=== PATIENT | female | born 1940 | race Caucasian/White ===

== ENCOUNTER 2023-11-28 07:42 | Inpatient (IN) | payer MEDICARE ==
[2023-11-28] VITALS (8 sets, daily range): BP systolic 110–148; BP diastolic 53–72; PULSE 86–100; RESP 18–20; TEMP 97.2–99.1; O2SAT 96–100
[~2023-11-28] VITALS: Ht 154.9 cm; Wt 63.5 kg
[2023-11-28 08:21] LABS: BASOPHILS % (AUTO) 0.2 % (0.0-2.0)
[2023-11-28] MEDS: PANTOPRAZOLE 40 MG INJ VIAL IVP ONE (08:32)
[2023-11-28] MEDS: NACL 0.9% 1,000 ML IV ONE (08:38)
[2023-11-28 09:12] LABS: EOSINOPHILS % (AUTO) 0.1 % (0.0-4.0); HEMATOCRIT 22.3 % (36-48); HEMOGLOBIN 7.4 g/dL (12.0-16.0); LYMPHOCYTES # (AUTO) 0.9 K/uL (2.5-16.5); LYMPHOCYTES % (AUTO) 4.7 % (20.5-51.1); MEAN CORPUSCULAR HEMOGLOBIN 30 pg (27-31); MEAN CORPUSCULAR HGB CONC 33 g/dL (33-37); MEAN CORPUSCULAR VOLUME 89.2 fL (80-94); MONOCYTES # (AUTO) 0.9 K/uL (0.8-1.0); MONOCYTES % (AUTO) 4.6 % (1.7-9.3); NEUTROPHILS # (AUTO) 16.7 K/uL (1.8-7.7); NEUTROPHILS % (AUTO) 90.4 % (42.2-75.2); PLATELET COUNT (AUTO) 435 K/uL (140-450); WHITE BLOOD COUNT (AUTO) 18.5 K/uL (4.8-10.8)
[2023-11-28 09:15] LABS: CALCIUM 8.3 mg/dL (8.5-10.1); CHLORIDE 105 mmol/L (98-107); CREATININE 1.1 mg/dL (0.6-1.3); GLUCOSE 144 mg/dL (74-106); POTASSIUM 3.4 mmol/L (3.5-5.1); SODIUM SERUM 138 mmol/L (136-145); UREA NITROGEN, BLOOD 39 mg/dL (7-18)
[2023-11-28 09:19] LABS: ANION GAP 15.1 (8-16); CARBON DIOXIDE 21.3 mmol/L (21-32)
[2023-11-28 09:22] LABS: LIPASE 32 U/L (16-77)
[2023-11-28 09:24] LABS: INR 1.05 (0.8-1.2); PARTIAL THROMBOPLASTIN TIME 22.1 secs (22-35.6)
[2023-11-28] MEDS ORDERED: LORazepam 1 MG TAB PO PRN (10:05)
[2023-11-28] MEDS ORDERED: ACETAMINOPHEN 325 MG TAB PO PRN (10:05)
[2023-11-28] MEDS ORDERED: HYDROcodone/APAP 5/325 MG 1 TAB TAB PO PRN (10:05)
[2023-11-28] MEDS ORDERED: cefTRIAXone 1,000 MG VIAL ONE (10:17)
[2023-11-28 10:37] LABS: MAGNESIUM 1.6 mg/dL (1.8-2.4); PHOSPHORUS 2.9 mg/dL (2.5-4.9)
[2023-11-28] MEDS ORDERED: AMLO10TA PO (10:41)
[2023-11-28] MEDS ORDERED: ASPI-1822 PO (10:41)
[2023-11-28] MEDS ORDERED: ATOR10TA PO (10:41)
[2023-11-28] MEDS ORDERED: GEMF600T5 PO (10:41)
[2023-11-28 11:17] LABS: ALANINE AMINOTRANSFERASE 17 U/L (12-78); ALBUMIN 2.4 g/dL (3.4-5.0); ALKALINE PHOSPHATASE 65 U/L (50-136); ANION GAP 18.2 (8-16); ASPARTATE AMINOTRANSFERASE 13 U/L (15-37); CALCIUM 8.1 mg/dL (8.5-10.1); CARBON DIOXIDE 18.2 mmol/L (21-32); CHLORIDE 107 mmol/L (98-107); GLUCOSE 101 mg/dL (74-106); POTASSIUM 3.4 mmol/L (3.5-5.1); SODIUM SERUM 140 mmol/L (136-145); TOTAL BILIRUBIN 0.2 mg/dL (0.0-1.0); TOTAL PROTEIN, SERUM 5.5 g/dL (6.4-8.2); UREA NITROGEN, BLOOD 37 mg/dL (7-18)
[2023-11-28] MEDS: NACL 0.9% 1,000 ML IV SCH (11:47)
[2023-11-28] MEDS: MAG SULF 2000 MG/WATER PREMIX 50 ML IV SCH (14:43)
[2023-11-28] MEDS ORDERED: gemfibroziL 600 MG TAB PO SCH (16:30)
[2023-11-28 17:15] LABS: BILIRUBIN,URINE NEGATIVE (NEGATIVE); BLOOD, URINE 3+ (NEGATIVE); COLOR,URINE YELLOW (YELLOW); LEUKOCYTE ESTERASE ,URINE 1+ (NEGATIVE); NITRITE, URINE NEGATIVE (NEGATIVE); PROTEIN,URINE TRACE (NEGATIVE); UGLUCOSE NEGATIVE (NEGATIVE); UROBILINOGEN,URINE 0.2 EU/dL (0.2 - 1)
[2023-11-28 17:16] LABS: APPEARANCE,URINE SLIGHTLY HAZY (CLEAR)
[2023-11-28 17:18] LABS: BACTERIA,URINE 1+ /HPF (None Seen); MUCUS,URINE None Seen /LPF (None Seen); SQUAMOUS EPITHELIAL CELL,UR 4-10 (MOD) /LPF (0-3 (FEW)); WBC,URINE 0-5 /HPF (0-5)
[2023-11-28] MEDS: PANTOPRAZOLE 40 MG INJ VIAL IVP SCH (20:03)
[2023-11-29] VITALS (9 sets, daily range): BP systolic 115–150; BP diastolic 37–61; PULSE 73–102; RESP 17–22; TEMP 97.7–99.1; O2SAT 96–100
[2023-11-29] MEDS ORDERED: ASPIRIN 81 MG TAB.CHEW PO SCH (06:30)
[2023-11-29 07:37] LABS: BASOPHILS # (AUTO) 0.1 K/uL (0.00-0.22); BASOPHILS % (AUTO) 0.7 % (0.0-2.0); EOSINOPHILS # (AUTO) 0.1 K/uL (0-0.4); EOSINOPHILS % (AUTO) 0.7 % (0.0-4.0); LYMPHOCYTES # (AUTO) 1.5 K/uL (2.5-16.5); LYMPHOCYTES % (AUTO) 16.5 % (20.5-51.1); MEAN CORPUSCULAR HEMOGLOBIN 32 pg (27-31); MEAN CORPUSCULAR HGB CONC 34 g/dL (33-37); MONOCYTES # (AUTO) 0.6 K/uL (0.8-1.0); MONOCYTES % (AUTO) 7.1 % (1.7-9.3); NEUTROPHILS # (AUTO) 6.8 K/uL (1.8-7.7); PLATELET COUNT (AUTO) 353 K/uL (140-450); RED BLOOD CELL COUNT(AUTO) 1.87 MIL/uL (4.20-5.40); RED CELL DISTRIBUTION WIDTH 14.1 % (11.6-13.7)
[2023-11-29 07:41] LABS: ALANINE AMINOTRANSFERASE 17 U/L (12-78); ALBUMIN 2.3 g/dL (3.4-5.0); ALKALINE PHOSPHATASE 59 U/L (50-136); ANION GAP 15.7 (8-16); ASPARTATE AMINOTRANSFERASE 12 U/L (15-37); CALCIUM 7.8 mg/dL (8.5-10.1); CARBON DIOXIDE 19.6 mmol/L (21-32); CHLORIDE 110 mmol/L (98-107); CREATININE 0.8 mg/dL (0.6-1.3); GLUCOSE 85 mg/dL (74-106); MAGNESIUM 2.1 mg/dL (1.8-2.4); PHOSPHORUS 3.4 mg/dL (2.5-4.9); POTASSIUM 3.3 mmol/L (3.5-5.1); SODIUM SERUM 142 mmol/L (136-145); TOTAL BILIRUBIN 0.2 mg/dL (0.0-1.0); UREA NITROGEN, BLOOD 24 mg/dL (7-18)
[2023-11-29] MEDS: DOCUSATE SODIUM 100 MG GELCAP PO SCH (09:00)
[2023-11-29] MEDS: amLODIPine 5 MG TAB PO SCH (09:00)
[2023-11-29] MEDS: gemfibroziL 600 MG TAB PO SCH (09:00)
[2023-11-29 09:32] LABS: HEMOGLOBIN 5.9 g/dL (12.0-16.0)
[2023-11-29 09:33] LABS: HEMATOCRIT 17.2 % (36-48)
[2023-11-29] MEDS: fentaNYL citrate 0.05 MG/ML VIAL ONE (11:09)
[2023-11-29] MEDS: diphenhydrAMINE 50 MG/ML VIAL ONE (11:09)
[2023-11-29] MEDS: MIDAZOLAM 2 MG/2 ML VIAL ONE (11:10)
[2023-11-29] MEDS: MIDAZOLAM 2 MG/2 ML VIAL IVP ONE (12:26)
[2023-11-29] MEDS: fentaNYL citrate 0.05 MG/ML VIAL IVP ONE (12:27)
[2023-11-29] MEDS: GLUCAGON 1 MG VIAL IVP ONE (12:35)
[2023-11-29] MEDS: EPINEPHrine PFS 0.1 MG/ML SYR IVP ONE (12:45)
[2023-11-29] MEDS: ONDANSETRON 4 MG/2 ML VIAL IVP PRN (13:50)
[2023-11-29] MEDS: SIMETHICONE 40 MG/0.6 ML ONE (14:21)
[2023-11-29 14:28] LABS: BASOPHILS # (AUTO) 0.1 K/uL (0.00-0.22); BASOPHILS % (AUTO) 0.4 % (0.0-2.0); EOSINOPHILS # (AUTO) 0.1 K/uL (0-0.4); EOSINOPHILS % (AUTO) 0.4 % (0.0-4.0); HEMATOCRIT 20.5 % (36-48); LYMPHOCYTES # (AUTO) 1.1 K/uL (2.5-16.5); LYMPHOCYTES % (AUTO) 4.9 % (20.5-51.1); MEAN CORPUSCULAR HEMOGLOBIN 30 pg (27-31); MEAN CORPUSCULAR HGB CONC 33 g/dL (33-37); MEAN CORPUSCULAR VOLUME 91.2 fL (80-94); MONOCYTES # (AUTO) 1.2 K/uL (0.8-1.0); MONOCYTES % (AUTO) 5.1 % (1.7-9.3); NEUTROPHILS # (AUTO) 20.6 K/uL (1.8-7.7); NEUTROPHILS % (AUTO) 89.2 % (42.2-75.2); PLATELET COUNT (AUTO) 337 K/uL (140-450); RED BLOOD CELL COUNT(AUTO) 2.25 MIL/uL (4.20-5.40); RED CELL DISTRIBUTION WIDTH 14.5 % (11.6-13.7); WHITE BLOOD COUNT (AUTO) 23.1 K/uL (4.8-10.8)
[2023-11-29 15:29] LABS: HEMOGLOBIN 6.7 g/dL (12.0-16.0)
[2023-11-29] MEDS: PANTOPRAZOLE 40 MG INJ VIAL IVP SCH (15:57)
[2023-11-29] MEDS: PANTOPRAZOLE 80 MG in NACL 0.9% 100 ML IV SCH (16:39)
[2023-11-29] MEDS ORDERED: hydrALAZINE 20 MG/ML VIAL IVP PRN (17:30)
[2023-11-29] MEDS: POTASSIUM CHLORIDE 20 MEQ, LIDOCAINE 1% 25 MG in NACL 0.9% 250 ML IV SCH (20:23)
[2023-11-30] VITALS (10 sets, daily range): BP systolic 105–146; BP diastolic 36–63; PULSE 67–78; RESP 17–28; TEMP 97–98.4; O2SAT 94–98
[2023-11-30 01:30] LABS: HEMATOCRIT 31.1 % (36-48); HEMOGLOBIN 10.4 g/dL (12.0-16.0)
[2023-11-30 05:51] LABS: BASOPHILS % (AUTO) 0.2 % (0.0-2.0); EOSINOPHILS % (AUTO) 0.1 % (0.0-4.0); HEMATOCRIT 30.1 % (36-48); HEMOGLOBIN 10.1 g/dL (12.0-16.0); LYMPHOCYTES # (AUTO) 1.4 K/uL (2.5-16.5); LYMPHOCYTES % (AUTO) 11.5 % (20.5-51.1); MEAN CORPUSCULAR HEMOGLOBIN 31 pg (27-31); MEAN CORPUSCULAR HGB CONC 34 g/dL (33-37); MEAN CORPUSCULAR VOLUME 91.3 fL (80-94); MONOCYTES % (AUTO) 8.3 % (1.7-9.3); NEUTROPHILS % (AUTO) 79.9 % (42.2-75.2); PLATELET COUNT (AUTO) 266 K/uL (140-450); RED CELL DISTRIBUTION WIDTH 15.1 % (11.6-13.7); WHITE BLOOD COUNT (AUTO) 12.5 K/uL (4.8-10.8)
[2023-11-30 06:17] LABS: ALANINE AMINOTRANSFERASE 28 U/L (12-78); ALBUMIN 2.2 g/dL (3.4-5.0); ALKALINE PHOSPHATASE 63 U/L (50-136); ANION GAP 16.3 (8-16); ASPARTATE AMINOTRANSFERASE 25 U/L (15-37); CARBON DIOXIDE 19.3 mmol/L (21-32); CHLORIDE 110 mmol/L (98-107); CREATININE 0.8 mg/dL (0.6-1.3); GLUCOSE 70 mg/dL (74-106); MAGNESIUM 1.7 mg/dL (1.8-2.4); PHOSPHORUS 3.3 mg/dL (2.5-4.9); POTASSIUM 3.6 mmol/L (3.5-5.1); SODIUM SERUM 142 mmol/L (136-145); TOTAL BILIRUBIN 0.5 mg/dL (0.0-1.0); TOTAL PROTEIN, SERUM 5.1 g/dL (6.4-8.2); UREA NITROGEN, BLOOD 15 mg/dL (7-18)
[2023-11-30] MEDS: MAG SULF 2000 MG/WATER PREMIX 50 ML IV SCH (12:20)
[2023-11-30 13:24] LABS: HEMATOCRIT 31.1 % (36-48); HEMOGLOBIN 10.5 g/dL (12.0-16.0)
[2023-11-30] MEDS: LANSOPRAZOLE 30 MG CAPDR PO SCH (16:45)
[2023-11-30 18:13] LABS: HEMATOCRIT 35.5 % (36-48); HEMOGLOBIN 11.7 g/dL (12.0-16.0)
[2023-11-30] MEDS: SUCRALFATE 1 GM TAB PO SCH (20:58)
[2023-12-01] VITALS: BP 136/51; PULSE 85; PULSE 97; RESP 19; TEMP 97.8; O2SAT 96
[2023-12-01 04:00] VITALS: BP 118/42; PULSE 63; PULSE 71; RESP 21; TEMP 97.6; O2SAT 96
[2023-12-01 06:54] LABS: BASOPHILS # (AUTO) 0.1 K/uL (0.00-0.22); BASOPHILS % (AUTO) 0.7 % (0.0-2.0); EOSINOPHILS # (AUTO) 0.1 K/uL (0-0.4); EOSINOPHILS % (AUTO) 1.3 % (0.0-4.0); HEMATOCRIT 30.2 % (36-48); HEMOGLOBIN 10.4 g/dL (12.0-16.0); LYMPHOCYTES # (AUTO) 0.8 K/uL (2.5-16.5); MEAN CORPUSCULAR HEMOGLOBIN 31 pg (27-31); MEAN CORPUSCULAR HGB CONC 35 g/dL (33-37); MEAN CORPUSCULAR VOLUME 90.1 fL (80-94); MONOCYTES # (AUTO) 0.7 K/uL (0.8-1.0); MONOCYTES % (AUTO) 7.3 % (1.7-9.3); NEUTROPHILS # (AUTO) 8.4 K/uL (1.8-7.7); NEUTROPHILS % (AUTO) 82.7 % (42.2-75.2); PLATELET COUNT (AUTO) 307 K/uL (140-450); RED BLOOD CELL COUNT(AUTO) 3.35 MIL/uL (4.20-5.40); WHITE BLOOD COUNT (AUTO) 10.2 K/uL (4.8-10.8)
[2023-12-01 06:55] LABS: ALANINE AMINOTRANSFERASE 49 U/L (12-78); ALBUMIN 2.3 g/dL (3.4-5.0); ALKALINE PHOSPHATASE 73 U/L (50-136); ANION GAP 14.2 (8-16); ASPARTATE AMINOTRANSFERASE 40 U/L (15-37); CARBON DIOXIDE 21.8 mmol/L (21-32); CHLORIDE 106 mmol/L (98-107); CREATININE 0.8 mg/dL (0.6-1.3); GLUCOSE 85 mg/dL (74-106); MAGNESIUM 1.7 mg/dL (1.8-2.4); PHOSPHORUS 2.8 mg/dL (2.5-4.9); SODIUM SERUM 139 mmol/L (136-145); TOTAL BILIRUBIN 0.5 mg/dL (0.0-1.0); TOTAL PROTEIN, SERUM 5.3 g/dL (6.4-8.2); UREA NITROGEN, BLOOD 10 mg/dL (7-18)
[2023-12-01 08:00] VITALS: BP 158/54; PULSE 66; PULSE 76; RESP 18; TEMP 98.6; O2SAT 96
[2023-12-01] MEDS: MAG SULF 2000 MG/WATER PREMIX 50 ML IV SCH (08:16)
[2023-12-01] MEDS: POTASSIUM CHLORIDE 10 MEQ TABER PO SCH (08:16)
[2023-12-01 12:00] VITALS: BP 141/51; PULSE 103; PULSE 77; RESP 18; TEMP 98; O2SAT 96
[2023-12-01 16:00] VITALS: BP 135/56; PULSE 86; RESP 18; TEMP 98.4; O2SAT 96
[2023-12-01 20:00] VITALS: BP 118/43; PULSE 77; RESP 18; TEMP 98.6; O2SAT 97
[2023-12-02 04:00] VITALS: BP 138/50; PULSE 86; RESP 18; TEMP 98.2; O2SAT 97
[2023-12-02 07:10] LABS: MAGNESIUM 1.7 mg/dL (1.8-2.4); PHOSPHORUS 2.6 mg/dL (2.5-4.9)
[2023-12-02 07:12] LABS: ANION GAP 12.8 (8-16); CALCIUM 8.1 mg/dL (8.5-10.1); CARBON DIOXIDE 23.6 mmol/L (21-32); CHLORIDE 107 mmol/L (98-107); CREATININE 0.8 mg/dL (0.6-1.3); GLUCOSE 108 mg/dL (74-106); POTASSIUM 3.4 mmol/L (3.5-5.1); SODIUM SERUM 140 mmol/L (136-145); UREA NITROGEN, BLOOD 12 mg/dL (7-18)
[2023-12-02 08:00] VITALS: BP 138/50; PULSE 75; PULSE 86; RESP 18; TEMP 96.9; O2SAT 97; O2SAT 98
[2023-12-02] MEDS ORDERED: SUCRALFATE 1 GM TAB PO SCH (09:20)
[2023-12-02] MEDS: MAG SULF 2000 MG/WATER PREMIX 50 ML IV SCH (09:22)
[2023-12-02] MEDS: LACTULOSE 20 GM/30 ML UDC PO PRN (11:30)
[2023-12-02] MEDS: POTASSIUM CHLORIDE 20 MEQ, LIDOCAINE 1% 25 MG in NACL 0.9% 250 ML IV SCH (11:30)
[2023-12-02 11:53] LABS: BASOPHILS % (AUTO) 0.5 % (0.0-2.0); EOSINOPHILS # (AUTO) 0.1 K/uL (0-0.4); EOSINOPHILS % (AUTO) 1.4 % (0.0-4.0); HEMATOCRIT 33.2 % (36-48); HEMOGLOBIN 11.3 g/dL (12.0-16.0); LYMPHOCYTES % (AUTO) 11.6 % (20.5-51.1); MEAN CORPUSCULAR HEMOGLOBIN 31 pg (27-31); MEAN CORPUSCULAR HGB CONC 34 g/dL (33-37); MEAN CORPUSCULAR VOLUME 90.3 fL (80-94); MONOCYTES % (AUTO) 11.3 % (1.7-9.3); NEUTROPHILS # (AUTO) 6.8 K/uL (1.8-7.7); NEUTROPHILS % (AUTO) 75.2 % (42.2-75.2); PLATELET COUNT (AUTO) 337 K/uL (140-450); RED BLOOD CELL COUNT(AUTO) 3.67 MIL/uL (4.20-5.40)
[2023-12-02 12:00] VITALS: BP 143/64; PULSE 75; RESP 18; TEMP 96.9; O2SAT 98
[2023-12-02 16:00] VITALS: BP 140/57; PULSE 80; RESP 18; TEMP 97.8; O2SAT 96
[2023-12-02 20:00] VITALS: BP 131/51; PULSE 85; RESP 20; TEMP 98; O2SAT 97
[2023-12-02] MEDS: DOCUSATE SODIUM 100 MG GELCAP PO SCH (20:44)
[2023-12-02 21:53] VITALS: TEMP 98
[2023-12-03 04:00] VITALS: BP 128/67; PULSE 76; RESP 19; TEMP 98.1; O2SAT 98
[2023-12-03 06:25] LABS: BASOPHILS % (AUTO) 0.4 % (0.0-2.0); EOSINOPHILS # (AUTO) 0.2 K/uL (0-0.4); EOSINOPHILS % (AUTO) 2.6 % (0.0-4.0); HEMATOCRIT 30.4 % (36-48); HEMOGLOBIN 10.5 g/dL (12.0-16.0); LYMPHOCYTES % (AUTO) 10.6 % (20.5-51.1); MEAN CORPUSCULAR HEMOGLOBIN 31 pg (27-31); MEAN CORPUSCULAR HGB CONC 35 g/dL (33-37); MEAN CORPUSCULAR VOLUME 90.4 fL (80-94); MONOCYTES % (AUTO) 10.5 % (1.7-9.3); NEUTROPHILS # (AUTO) 7.4 K/uL (1.8-7.7); NEUTROPHILS % (AUTO) 75.9 % (42.2-75.2); PLATELET COUNT (AUTO) 328 K/uL (140-450); RED BLOOD CELL COUNT(AUTO) 3.36 MIL/uL (4.20-5.40); RED CELL DISTRIBUTION WIDTH 15.3 % (11.6-13.7); WHITE BLOOD COUNT (AUTO) 9.7 K/uL (4.8-10.8)
[2023-12-03 07:10] LABS: ANION GAP 15.2 (8-16); CALCIUM 8.4 mg/dL (8.5-10.1); CARBON DIOXIDE 21.4 mmol/L (21-32); CHLORIDE 107 mmol/L (98-107); CREATININE 0.8 mg/dL (0.6-1.3); GLUCOSE 115 mg/dL (74-106); POTASSIUM 3.6 mmol/L (3.5-5.1); SODIUM SERUM 140 mmol/L (136-145); UREA NITROGEN, BLOOD 12 mg/dL (7-18)
[2023-12-03 08:00] VITALS: BP 139/58; PULSE 75; RESP 18; TEMP 97.7; O2SAT 95
[2023-12-03] MEDS ORDERED: LANS30EC68 PO (12:26)
[2023-12-03] MEDS ORDERED: DOCU-299 PO (12:26)
[2023-12-03] MEDS ORDERED: SUCR1TAB56 PO (12:26)
[2023-12-03] MEDS ORDERED: LACT10SO11 PO (12:26)
[2023-12-03] MEDS: MAG SULF 2000 MG/WATER PREMIX 50 ML IV PRN (14:56)
[2023-12-03 16:00] VITALS: BP 135/66; PULSE 80; RESP 18; TEMP 98.8; O2SAT 97
[2023-12-03 20:00] VITALS: PULSE 77; RESP 20; TEMP 98.7; O2SAT 97
[2023-12-04] VITALS: BP 124/66; PULSE 84; RESP 18; TEMP 98.2; O2SAT 97
[2023-12-04 08:00] VITALS: BP 138/60; PULSE 71; RESP 18; TEMP 97.9; O2SAT 96
[2023-12-04 12:57] LABS: BASOPHILS # (AUTO) 0.1 K/uL (0.00-0.22); BASOPHILS % (AUTO) 0.7 % (0.0-2.0); EOSINOPHILS # (AUTO) 0.2 K/uL (0-0.4); EOSINOPHILS % (AUTO) 2.5 % (0.0-4.0); HEMATOCRIT 33.1 % (36-48); HEMOGLOBIN 11.2 g/dL (12.0-16.0); LYMPHOCYTES # (AUTO) 1.3 K/uL (2.5-16.5); LYMPHOCYTES % (AUTO) 16.1 % (20.5-51.1); MEAN CORPUSCULAR HEMOGLOBIN 31 pg (27-31); MEAN CORPUSCULAR HGB CONC 34 g/dL (33-37); MEAN CORPUSCULAR VOLUME 90.7 fL (80-94); MONOCYTES # (AUTO) 0.9 K/uL (0.8-1.0); MONOCYTES % (AUTO) 11.5 % (1.7-9.3); NEUTROPHILS # (AUTO) 5.5 K/uL (1.8-7.7); NEUTROPHILS % (AUTO) 69.2 % (42.2-75.2); PLATELET COUNT (AUTO) 389 K/uL (140-450); RED BLOOD CELL COUNT(AUTO) 3.65 MIL/uL (4.20-5.40); WHITE BLOOD COUNT (AUTO) 7.9 K/uL (4.8-10.8)
[2023-12-04 16:00] VITALS: BP 142/46; PULSE 80; RESP 18; TEMP 98.1; O2SAT 99
[2023-12-04 20:00] VITALS: BP 128/51; PULSE 75; RESP 18; TEMP 97.2; O2SAT 97
[2023-12-05 06:34] LABS: BASOPHILS # (AUTO) 0.1 K/uL (0.00-0.22); BASOPHILS % (AUTO) 0.9 % (0.0-2.0); EOSINOPHILS # (AUTO) 0.3 K/uL (0-0.4); HEMATOCRIT 31.6 % (36-48); HEMOGLOBIN 10.7 g/dL (12.0-16.0); LYMPHOCYTES # (AUTO) 1.4 K/uL (2.5-16.5); LYMPHOCYTES % (AUTO) 15.3 % (20.5-51.1); MEAN CORPUSCULAR HEMOGLOBIN 31 pg (27-31); MEAN CORPUSCULAR HGB CONC 34 g/dL (33-37); MEAN CORPUSCULAR VOLUME 90.6 fL (80-94); MONOCYTES # (AUTO) 1.1 K/uL (0.8-1.0); MONOCYTES % (AUTO) 11.6 % (1.7-9.3); NEUTROPHILS # (AUTO) 6.3 K/uL (1.8-7.7); NEUTROPHILS % (AUTO) 69.2 % (42.2-75.2); PLATELET COUNT (AUTO) 381 K/uL (140-450); RED BLOOD CELL COUNT(AUTO) 3.49 MIL/uL (4.20-5.40); RED CELL DISTRIBUTION WIDTH 14.9 % (11.6-13.7); WHITE BLOOD COUNT (AUTO) 9.1 K/uL (4.8-10.8)
[2023-12-05] MEDS ORDERED: LACTULOSE 20 GM/30 ML UDC PO PRN (07:17)
[2023-12-05 07:45] LABS: ANION GAP 13.1 (8-16); CALCIUM 8.8 mg/dL (8.5-10.1); CARBON DIOXIDE 24.9 mmol/L (21-32); CHLORIDE 104 mmol/L (98-107); CREATININE 0.9 mg/dL (0.6-1.3); GLUCOSE 93 mg/dL (74-106); SODIUM SERUM 138 mmol/L (136-145); UREA NITROGEN, BLOOD 18 mg/dL (7-18)
[2023-12-05 08:00] VITALS: BP 137/62; PULSE 75; RESP 18; TEMP 98.6; O2SAT 96
[2023-12-05] MEDS: MAGNESIUM OXIDE 400 MG TAB PO SCH (10:15)
[2023-12-05 16:00] VITALS: BP 124/83; PULSE 68; RESP 18; TEMP 98.7; O2SAT 98
[2023-12-05 20:00] VITALS: BP 120/58; PULSE 73; RESP 18; TEMP 97.9; TEMP 98.6; O2SAT 98; O2SAT 99
[2023-12-06 06:25] LABS: MAGNESIUM 1.7 mg/dL (1.8-2.4); PHOSPHORUS 4.4 mg/dL (2.5-4.9)
[2023-12-06 08:00] VITALS: BP 123/67; PULSE 76; RESP 18; TEMP 98.1; O2SAT 97
[2023-12-06 08:16] LABS: BASOPHILS # (AUTO) 0.1 K/uL (0.00-0.22); BASOPHILS % (AUTO) 0.8 % (0.0-2.0); EOSINOPHILS # (AUTO) 0.2 K/uL (0-0.4); EOSINOPHILS % (AUTO) 2.8 % (0.0-4.0); HEMATOCRIT 31.5 % (36-48); HEMOGLOBIN 10.4 g/dL (12.0-16.0); LYMPHOCYTES # (AUTO) 1.1 K/uL (2.5-16.5); LYMPHOCYTES % (AUTO) 12.8 % (20.5-51.1); MEAN CORPUSCULAR HEMOGLOBIN 30 pg (27-31); MEAN CORPUSCULAR HGB CONC 33 g/dL (33-37); MEAN CORPUSCULAR VOLUME 91.8 fL (80-94); MONOCYTES % (AUTO) 11.6 % (1.7-9.3); PLATELET COUNT (AUTO) 398 K/uL (140-450); RED BLOOD CELL COUNT(AUTO) 3.43 MIL/uL (4.20-5.40); WHITE BLOOD COUNT (AUTO) 8.3 K/uL (4.8-10.8)
[2023-12-06 08:21] LABS: ANION GAP 13.5 (8-16); CALCIUM 9.1 mg/dL (8.5-10.1); CARBON DIOXIDE 24.6 mmol/L (21-32); CHLORIDE 103 mmol/L (98-107); CREATININE 0.9 mg/dL (0.6-1.3); GLUCOSE 105 mg/dL (74-106); POTASSIUM 4.1 mmol/L (3.5-5.1); SODIUM SERUM 137 mmol/L (136-145); UREA NITROGEN, BLOOD 22 mg/dL (7-18)
== END 2023-12-06 17:20 | disposition home or self-care (01) | DRG 378 ==
LOC: MED 07:42 → MTU 10:11 → MIC 11-29 13:30 → MTU 11-30 06:35
PROVIDERS: ADMIT Student in an Organized Health Care Education/Training Program; ATTEND Student in an Organized Health Care Education/Training Program
PROC: 30233N1 Transfusion of Nonautologous Red Blood Cells into Peripheral Vein, Percutaneous Approach (ICD-10-PCS; principal; 2023-11-29 12:00)
PROC: 0W3P8ZZ Control Bleeding in Gastrointestinal Tract, Via Natural or Artificial Opening Endoscopic (ICD-10-PCS; 2023-11-29 12:00)
DX: K26.0 Acute duodenal ulcer with hemorrhage (principal); D62 Acute posthemorrhagic anemia; E44.0 Moderate protein-calorie malnutrition; N39.0 Urinary tract infection, site not specified; R65.10 Systemic inflammatory response syndrome (SIRS) of non-infectious origin without acute organ dysfunction; K21.9 Gastro-esophageal reflux disease without esophagitis; I10 Essential (primary) hypertension; E78.5 Hyperlipidemia, unspecified; E87.6 Hypokalemia; E83.42 Hypomagnesemia; Z90.12 Acquired absence of left breast and nipple; Z79.82 Long term (current) use of aspirin; Z79.899 Other long term (current) drug therapy; Z68.26 Body mass index [BMI] 26.0-26.9, adult
CPT/HCPCS: 36415; 36430; 71045; 80048; 80053; 81001; 83690; 83735; 84100; 84484; 85018; 85025; 85610; 85730; 86677; 86886; 86900; 86901; 86920; 87040; 87081; 87086; 93005; 96361; 96365; 96375; 97116; 97163-GP; 99291; J0171; J0696; J1200; J1610; J2001; J2250; J2405; J2470; J3010; J3475; J3480; J7030; J7060; P9016